=== PATIENT | male | born 1970 | race Two or more races ===

== ENCOUNTER 2017-06-26 14:32 | Emergency (ER) | payer OTHER ==
[~2017-06-26] VITALS: Ht 177.8 cm; Wt 98.0 kg
[~2017-06-26 14:32] MED LIST: COUMADIN6 MG PO; LIPITOR20 MG PO
[2017-06-26] MEDS ORDERED: TUSSI PRES-B L120 M1 PO (17:46)
[2017-06-26] MEDS ORDERED: OSEL75CA PO (17:46)
== END 2017-06-26 17:54 | disposition home or self-care (01) ==
LOC: ER 14:32
DX: B34.9 Viral infection, unspecified (principal); R50.9 Fever, unspecified

== ENCOUNTER 2021-09-23 17:10 | Emergency (ER) | payer OTHER ==
[~2021-09-23] VITALS: Ht 177.8 cm; Wt 99.8 kg
[~2021-09-23 17:10] MED LIST changes: +OSEL75CA PO; +TUSSI PRES-B L120 M1 PO
[2021-09-23] MEDS ORDERED: JANTOVEN5 MG (17:28)
[2021-09-23] MEDS ORDERED: JANTOVEN6 MG (17:29)
== END 2021-09-23 22:14 | disposition home or self-care (01) ==
LOC: ER 17:10
DX: K52.9 Noninfective gastroenteritis and colitis, unspecified (principal); Z86.718 Personal history of other venous thrombosis and embolism; G47.30 Sleep apnea, unspecified; E78.00 Pure hypercholesterolemia, unspecified

== ENCOUNTER 2021-10-31 20:57 | Emergency (ER) | payer OTHER ==
[~2021-10-31] VITALS: Ht 177.8 cm; Wt 97.5 kg
[~2021-10-31 20:57] MED LIST changes: +JANTOVEN5 MG; +JANTOVEN6 MG
[2021-10-31] MEDS ORDERED: ATORVASTATIN CA10 MG PO (21:40)
[2021-10-31] MEDS ORDERED: FOLIC ACID1 MG PO (21:40)
== END 2021-10-31 23:13 | disposition home or self-care (01) ==
LOC: ER 20:57
DX: K62.89 Other specified diseases of anus and rectum (principal); K64.9 Unspecified hemorrhoids

== ENCOUNTER 2021-11-12 11:01 | Emergency (ER) | payer OTHER ==
[~2021-11-12] VITALS: Ht 177.8 cm; Wt 97.5 kg
[~2021-11-12 11:01] MED LIST changes: +ATORVASTATIN CA10 MG PO; +FOLIC ACID1 MG PO
[2021-11-12] MEDS ORDERED: ESCITALOPRAM OX10 MG PO (11:28)
[2021-11-12] MEDS ORDERED: NABUMETONE750 MG PO (13:21)
[2021-11-12] MEDS ORDERED: NORFLEX100MG PO (13:21)
== END 2021-11-12 13:25 | disposition home or self-care (01) ==
LOC: ER 11:01
DX: M51.26 Other intervertebral disc displacement, lumbar region (principal); G47.33 Obstructive sleep apnea (adult) (pediatric); Z86.72 Personal history of thrombophlebitis

== ENCOUNTER 2022-03-19 08:37 | Day surgery (SDC) | payer OTHER ==
[~2022-03-19] VITALS: Ht 177.8 cm; Wt 86.2 kg
[~2022-03-19 08:37] MED LIST changes: +ESCITALOPRAM OX10 MG PO; +NABUMETONE750 MG PO; +NORFLEX100MG PO; +WAFARIN PO; +WARFARIN SODIUM4 MG PO
[2022-03-19] MEDS ORDERED: PERCOCET 5-3251 EACH PO (12:08)
== END 2022-03-19 18:50 | disposition home or self-care (01) ==
LOC: CIR.AMB 08:37
PROVIDERS: ATTEND Surgery
DX: K60.1 Chronic anal fissure (principal); K62.89 Other specified diseases of anus and rectum; K62.4 Stenosis of anus and rectum; K62.5 Hemorrhage of anus and rectum; Z20.822 Contact with and (suspected) exposure to COVID-19

== ENCOUNTER 2022-09-08 05:56 | Day surgery (SDC) | payer OTHER ==
[~2022-09-08 05:56] MED LIST changes: +JANTOVEN4 MG; +JANTOVEN5 MG PO; +PERCOCET 5-3251 EACH PO
[2022-09-08] MEDS ORDERED: PERCOCET 5-3251 EACH PO (09:53)
== END 2022-09-08 11:50 | disposition home or self-care (01) ==
LOC: CIR.AMB 05:56
PROVIDERS: ATTEND Orthopaedic Surgery
DX: M75.122 Complete rotator cuff tear or rupture of left shoulder, not specified as traumatic (principal); M24.112 Other articular cartilage disorders, left shoulder; M19.212 Secondary osteoarthritis, left shoulder; M66.822 Spontaneous rupture of other tendons, left upper arm; E78.2 Mixed hyperlipidemia; Z20.822 Contact with and (suspected) exposure to COVID-19; I10 Essential (primary) hypertension

== ENCOUNTER 2022-09-21 10:35 | Emergency (ER) | payer OTHER ==
[~2022-09-21] VITALS: Ht 177.8 cm; Wt 97.1 kg
[2022-09-21] MEDS ORDERED: LIPITOR20 MG PO (10:46)
== END 2022-09-21 17:17 | disposition home or self-care (01) ==
LOC: ER 10:35
DX: M79.671 Pain in right foot (principal); Z88.6 Allergy status to analgesic agent; Z88.8 Allergy status to other drugs, medicaments and biological substances

== ENCOUNTER 2023-02-08 16:41 | Emergency (ER) | payer OTHER ==
[~2023-02-08] VITALS: Ht 177.8 cm; Wt 99.8 kg
[2023-02-08] MEDS ORDERED: ASA81 MG PO (17:35)
[2023-02-08] MEDS ORDERED: FOLIC ACID1 MG PO (17:35)
[2023-02-08] MEDS ORDERED: DAFLONEX-XL 11300 MG PO (17:36)
[2023-02-08] MEDS ORDERED: [UNRECOGNIZED DRUG - OTHER] (17:38)
== END 2023-02-08 20:50 | disposition home or self-care (01) ==
LOC: ER 16:42
DX: M79.671 Pain in right foot (principal); G47.39 Other sleep apnea; Z86.718 Personal history of other venous thrombosis and embolism; Z88.8 Allergy status to other drugs, medicaments and biological substances; S92.811A Other fracture of right foot, initial encounter for closed fracture

== ENCOUNTER 2023-02-19 12:07 | Emergency (ER) | payer OTHER ==
[~2023-02-19] VITALS: Ht 177.8 cm; Wt 99.3 kg
[~2023-02-19 12:07] MED LIST changes: +ASA81 MG PO; +DAFLONEX-XL 11300 MG PO; +[UNRECOGNIZED DRUG - OTHER]
== END 2023-02-19 14:22 | disposition home or self-care (01) ==
LOC: ER 12:07
DX: B02.8 Zoster with other complications (principal); Z88.8 Allergy status to other drugs, medicaments and biological substances; I82.409 Acute embolism and thrombosis of unspecified deep veins of unspecified lower extremity

== ENCOUNTER 2023-07-19 15:10 | Emergency (ER) | payer OTHER ==
[~2023-07-19] VITALS: Ht 177.8 cm; Wt 98.4 kg
== END 2023-07-19 20:25 | disposition left against medical advice (07) ==
LOC: ER 15:11
DX: R53.81 Other malaise (principal); Z88.5 Allergy status to narcotic agent; E78.00 Pure hypercholesterolemia, unspecified